=== PATIENT | female | born 1995 | race African-American/Black ===

== ENCOUNTER 2017-05-06 16:21 | Emergency (ER) | payer BC, OTHER ==
[~2017-05-06] VITALS: Ht 152.4 cm; Wt 55.3 kg
[2017-05-06 16:32] LABS: URINE BILIRUBIN NEGATIVE (Negative); URINE BLOOD NEGATIVE (Negative); URINE COLOR YELLOW; URINE GLUCOSE-RANDOM* NEGATIVE (Negative); URINE KETONES NEGATIVE (Negative); URINE NITRITE NEGATIVE (Negative); URINE PROTEIN (DIPSTICK) NEGATIVE (Negative); URINE SPECIFIC GRAVITY 1.025 (1.003-1.035)
[2017-05-06 16:47] VITALS: BP 111/78
[2017-05-08 03:08] LABS: CHLAMYDIA TRACHOMATIS-PCR Negative (Negative); NEISSERIA GONORRHEA-PCR Negative (Negative)
== END 2017-05-06 17:27 | disposition home or self-care (01) ==
LOC: ER 16:21
PROVIDERS: Physician Assistant
DX: N89.8 Other specified noninflammatory disorders of vagina (principal)

== ENCOUNTER 2017-11-28 06:38 | Emergency (ER) | payer BC, OTHER ==
[~2017-11-28] VITALS: Ht 157.5 cm; Wt 56.7 kg
[2017-11-28 07:07] LABS: URINE BILIRUBIN NEGATIVE (Negative); URINE BLOOD NEGATIVE (Negative); URINE CLARITY CLEAR; URINE COLOR YELLOW; URINE GLUCOSE-RANDOM* NEGATIVE (Negative); URINE KETONES NEGATIVE (Negative); URINE LEUKOCYTES-REFLEX NEGATIVE (Negative); URINE NITRITE-REFLEX NEGATIVE (Negative); URINE PROTEIN (DIPSTICK) NEGATIVE (Negative); URINE SPECIFIC GRAVITY >= 1.030 (1.005-1.035); URINE UROBILINOGEN 0.2 E.U./dl (0.2-1.0)
[2017-11-28] MEDS ORDERED: KEFLEX500 M1 PO (07:59)
== END 2017-11-28 08:54 | disposition home or self-care (01) ==
LOC: ER 06:38
PROVIDERS: Emergency Medicine
DX: R30.0 Dysuria (principal); Z90.49 Acquired absence of other specified parts of digestive tract

== ENCOUNTER 2018-02-18 09:48 | Emergency (ER) | payer BC, OTHER ==
[~2018-02-18] VITALS: Ht 152.4 cm; Wt 61.2 kg
[~2018-02-18 09:48] MED LIST: KEFLEX500 M1 PO
[2018-02-18] MEDS ORDERED: TESSALON PERLE100 MG PO (10:40)
[2018-02-18] MEDS ORDERED: CLARITIN-D 121 EAC1 PO (10:40)
[2018-02-18 11:28] VITALS: BP 115/70
== END 2018-02-18 11:29 | disposition home or self-care (01) ==
LOC: ER 09:48
DX: J06.9 Acute upper respiratory infection, unspecified (principal); Z90.49 Acquired absence of other specified parts of digestive tract

== ENCOUNTER 2018-03-27 18:04 | Emergency (ER) | payer BC, OTHER ==
[~2018-03-27] VITALS: Ht 152.4 cm; Wt 59.4 kg
[~2018-03-27 18:04] MED LIST changes: +CLARITIN-D 121 EAC1 PO; +TESSALON PERLE100 MG PO
[2018-03-27 18:58] LABS: URINE BILIRUBIN NEGATIVE (Negative); URINE BLOOD NEGATIVE (Negative); URINE CLARITY CLEAR; URINE COLOR YELLOW; URINE GLUCOSE-RANDOM* NEGATIVE (Negative); URINE KETONES NEGATIVE (Negative); URINE LEUKOCYTES-REFLEX NEGATIVE (Negative); URINE NITRITE-REFLEX NEGATIVE (Negative); URINE PROTEIN (DIPSTICK) NEGATIVE (Negative); URINE SPECIFIC GRAVITY 1.015 (1.005-1.035)
[2018-03-27 18:58] LABS: ABSOLUTE NEUTROPHILS 3.8 thou/uL (1.4-8.2); BASOPHILS 0.4 % (0.0-2.0); EOSINOPHILS 0.5 % (0.0-3.0); HEMATOCRIT 37.9 % (37.0-47.0); LYMPHOCYTES 26.6 % (24.0-44.0); MCH 31.6 pg (26.0-34.0); MCHC 34.3 g/dL (28.0-37.0); MCV 92.2 fL (80.0-100.0); MONOCYTES 11.4 % (1.0-8.0); PLATELET COUNT 310 thou/uL (150-400); POLYS 61.1 % (36.0-66.0); RBC 4.11 mil/uL (4.20-5.00); RDW 12.8 % (10.5-14.5); WBC 6.2 thou/uL (4.0-11.0)
[2018-03-27 19:05] LABS: CREATININE 0.9 mg/dL (0.6-1.0); POTASSIUM 3.5 mmol/L (3.5-5.1)
[2018-03-27 19:12] LABS: ALBUMIN 3.7 g/dL (3.4-5.0); TOTAL BILIRUBIN 0.4 mg/dL (<0.1-1.0); TOTAL PROTEIN 7.6 g/dL (6.4-8.2)
[2018-03-27] MEDS ORDERED: NAPROSYN500 MG PO (20:00)
[2018-03-27 20:42] VITALS: BP 105/65
[2018-03-28 14:12] LABS: NEISSERIA GONORRHEA-PCR Negative (Negative)
== END 2018-03-27 20:43 | disposition home or self-care (01) ==
LOC: ER 18:04
PROVIDERS: Physician Assistant
DX: R10.2 Pelvic and perineal pain (principal); Z90.49 Acquired absence of other specified parts of digestive tract